=== PATIENT | female | born 1965 | race African-American/Black ===

== ENCOUNTER → 2018-01-14 | Outpatient (CLI) | payer MEDICAID | END | disposition home or self-care (01) | LOC: RADPV 09:33 | PROVIDERS: ATTEND Physician Assistant | DX: K76.0 Fatty (change of) liver, not elsewhere classified (principal) | CPT/HCPCS: 76700 ==

== ENCOUNTER 2019-05-24 21:15 | Inpatient (IN) | payer MEDICAID ==
[~2019-05-24] VITALS: Ht 162.6 cm; Wt 104.3 kg
[2019-05-24] MEDS ORDERED: HALOPERIDOL 5 MG TABLET PO PRN (22:00)
[2019-05-24] MEDS ORDERED: ZOLPIDEM TARTRATE 10 MG TABLET PO PRN (22:00)
[2019-05-24] MEDS ORDERED: LORazepam 2 MG TABLET PO PRN (22:00)
[2019-05-24] MEDS ORDERED: TRAZ-220 PO (22:37)
[2019-05-24] MEDS ORDERED: HALO5TAB2 PO (22:37)
[2019-05-25 07:45] VITALS: BP 161/75
[2019-05-25 08:00] VITALS: BP 161/75
[2019-05-25 08:25] LABS: BASOPHILS % (AUTO) 0.6 % (0.0-2.0); EOSINOPHILS % (AUTO) 6.8 % (1.0-6.0); HEMATOCRIT 40.9 % (36-46); HEMOGLOBIN 13.6 g/dL (12.0-16.0); LYMPHOCYTES % (AUTO) 45.3 % (22.0-44.0); MEAN CORPUSCULAR HEMOGLOBIN 28.9 pg (26.0-34.0); MEAN CORPUSCULAR HGB CONC 33.3 G/dL (31.0-37.0); MEAN CORPUSCULAR VOLUME 87 fL (80-100); MONOCYTES # (AUTO) 0.3 K/uL (0.1-1.0); MONOCYTES % (AUTO) 7.5 % (2.0-9.0); NEUTROPHILS # (AUTO) 1.8 K/uL (1.8-7.7); NEUTROPHILS % (AUTO) 39.8 % (40.0-70.0); PLATELET COUNT (AUTO) 245 K/uL (150-450); RED BLOOD CELL COUNT(AUTO) 4.71 MIL/uL (4.00-5.20); RED CELL DISTRIBUTION WIDTH 13.3 % (11.5-14.5)
[2019-05-25 08:31] LABS: AMPHET/METH SCREEN,URINE NEGATIVE (NEGATIVE); BARBITURATE SCREEN, URINE NEGATIVE (NEGATIVE); BENZODIAZEPINES SCREEN,URINE NEGATIVE (NEGATIVE); CANNABINOID SCREEN,URINE NEGATIVE (NEGATIVE); COCAINE SCREEN,URINE NEGATIVE (NEGATIVE); METHADONE SCREEN, URINE NEGATIVE (NEGATIVE); OPIATE SCREEN,URINE NEGATIVE (NEGATIVE)
[2019-05-25 08:33] LABS: PHENCYCLIDINE SCREEN,URINE NEGATIVE (NEGATIVE)
[2019-05-25 08:37] LABS: HEMOGLOBIN A1C 6.2 % (4.5-6.2)
[2019-05-25 08:48] LABS: ALANINE AMINOTRANSFERASE 27 U/L (12-78); ALBUMIN 3.2 g/dL (3.4-5.0); ALKALINE PHOSPHATASE 57 U/L (46-116); ANION GAP 4 mmol/L (8-16); ASPARTATE AMINOTRANSFERASE 23 U/L (15-37); BILIRUBIN,TOTAL 0.6 mg/dL (0.1-1.0); CALCIUM, TOTAL 9.2 mg/dL (8.8-10.5); CARBON DIOXIDE 29 mmol/L (22-29); CHLORIDE 110 mmol/L (98-107); CHOL/HDL RATIO 5.2 (3.9-5.7); CHOLESTEROL 170 mg/dL (131-200); CREATININE 0.89 mg/dL (0.60-1.30); FREE T4 (FREE THYROXINE) 1.11 ng/dL (0.76-1.46); GLOMERULAR FILTR. RATE CALC > 60 mL/min (>60); GLUCOSE,RANDOM 93 mg/dL (70-110); HDL CHOLESTEROL 33 mg/dL (40-60); LDL CHOL (CALC.) 120 mg/dL (0-130); SODIUM SERUM 143 mmol/L (136-145); THYROID STIMULATING HORMONE 0.62 uIU/mL (0.36-3.74); TOTAL PROTEIN, SERUM 6.3 g/dL (6.4-8.2); TRIGLYCERIDES 84 mg/dL (15-150); UREA NITROGEN, BLOOD 11 mg/dL (7-18)
[2019-05-25] MEDS ORDERED: MAGNESIUM HYDROXIDE SUSPENSION 30 ML UDCUP PO PRN (09:00)
[2019-05-25] MEDS ORDERED: OMEPRAZOLE 20 MG CAPSULE PO SCH (09:00)
[2019-05-25] MEDS ORDERED: BENZOCAINE/MENTHOL LOZENGE MM PRN (09:00)
[2019-05-25] MEDS ORDERED: MAG HYDROX/AL HYDROX/SIMETH ES 30 ML SUSPENSION UDCUP PO PRN (09:00)
[2019-05-25] MEDS ORDERED: DOCUSATE SODIUM 100 MG CAPSULE PO SCH (09:00)
[2019-05-25] MEDS ORDERED: ACETAMINOPHEN 325 MG TABLET PO PRN (09:00)
[2019-05-25] MEDS ORDERED: ONDANSETRON HCL 4 MG TABLET PO PRN (09:00)
[2019-05-25] MEDS ORDERED: CloNIDine HCL 0.1 MG TABLET PO PRN (09:00)
[2019-05-25] MEDS ORDERED: BACITRACIN 28.4 GM OINTMENT TP PRN (09:00)
[2019-05-25] MEDS ORDERED: IBUPROFEN 600 MG TABLET PO PRN (09:00)
[2019-05-25] MEDS ORDERED: LOPERAMIDE HCL 2 MG CAPSULE PO PRN (09:00)
[2019-05-25 09:05] LABS: APPEARANCE,URINE CLEAR (CLEAR); BILIRUBIN,URINE NEGATIVE (NEGATIVE); GLUCOSE, URINE (UA) NEGATIVE (NEGATIVE); KETONES,URINE NEGATIVE (NEGATIVE); LEUKOCYTE ESTERASE ,URINE NEGATIVE (NEGATIVE); NITRATE,URINE NEGATIVE (NEGATIVE); OCCULT BLOOD,URINE TRACE (NEGATIVE); PROTEIN,URINE NEGATIVE (NEGATIVE); UROBILINOGEN,URINE 0.2 mg/dL (<=1.0)
[2019-05-25 09:21] LABS: BACTERIA,URINE None Seen /HPF (None Seen); RBC,URINE 0-2 /HPF (0-2); SQUAMOUS EPITHELIAL CELL,UR Few /LPF (None Seen); WBC,URINE 0-2 /HPF (0-5)
[2019-05-25] MEDS ORDERED: OMEPRAZOLE 20 MG CAPSULE PO PRN (10:00)
[2019-05-25] MEDS ORDERED: DOCUSATE SODIUM 100 MG CAPSULE PO PRN (10:00)
[2019-05-25 16:38] VITALS: BP 129/72
[2019-05-25] MEDS: TRIAMCINOLONE 0.1% 15 GM CREAM TP SCH (16:46)
[2019-05-26] MEDS: TRIAMCINOLONE 0.1% 15 GM CREAM TP SCH (08:04)
[2019-05-26 08:26] VITALS: BP 107/60
[2019-05-26] MEDS: ALBUTEROL SULFATE HFA 90 MCG/PUFF 8 GM INHALER IH PRN (08:32)
[2019-05-26] MEDS: HALOPERIDOL 5 MG TABLET PO SCH (18:15)
[2019-05-26] MEDS: TraZODone HCL 150 MG TABLET PO SCH (20:46)
[2019-05-27 06:38] VITALS: BP 119/73
[2019-05-27] MEDS: ALBUTEROL SULFATE HFA 90 MCG/PUFF 8 GM INHALER IH PRN (06:48)
[2019-05-27 08:40] VITALS: BP 133/61
[2019-05-27] MEDS: HALOPERIDOL 5 MG TABLET PO SCH ×2 (08:49→17:00)
[2019-05-27] MEDS: TRIAMCINOLONE 0.1% 15 GM CREAM TP SCH (08:49)
[2019-05-27] MEDS: PETROLATUM,WHITE 28 GM JELLY TP PRN (10:28)
[2019-05-27 16:40] VITALS: BP 136/69
[2019-05-27] MEDS: TraZODone HCL 150 MG TABLET PO SCH (20:30)
[2019-05-28 08:35] VITALS: BP 128/62
[2019-05-28] MEDS: HALOPERIDOL 5 MG TABLET PO SCH ×2 (09:00→16:17)
[2019-05-28] MEDS: TRIAMCINOLONE 0.1% 15 GM CREAM TP SCH (09:00)
[2019-05-28] MEDS: ALBUTEROL SULFATE HFA 90 MCG/PUFF 8 GM INHALER IH PRN (10:06)
[2019-05-28 16:05] VITALS: BP 113/60
[2019-05-28] MEDS: TraZODone HCL 150 MG TABLET PO SCH (20:08)
[2019-05-29 06:44] VITALS: BP 134/67
[2019-05-29 08:41] VITALS: BP 126/77
[2019-05-29] MEDS: TRIAMCINOLONE 0.1% 15 GM CREAM TP SCH (09:00)
[2019-05-29] MEDS: HALOPERIDOL 5 MG TABLET PO SCH ×2 (09:00→16:16)
[2019-05-29] MEDS: TraZODone HCL 150 MG TABLET PO SCH (20:27)
[2019-05-30 07:23] VITALS: BP 132/68
[2019-05-30] MEDS: HALOPERIDOL 5 MG TABLET PO SCH ×2 (08:19→16:24)
[2019-05-30] MEDS: PETROLATUM,WHITE 28 GM JELLY TP PRN (08:21)
[2019-05-30] MEDS: TRIAMCINOLONE 0.1% 15 GM CREAM TP SCH (08:23)
[2019-05-30 08:38] VITALS: BP 129/68
[2019-05-30 16:22] VITALS: BP 105/62
[2019-05-30] MEDS: TraZODone HCL 150 MG TABLET PO SCH (21:18)
[2019-05-31 03:49] VITALS: BP 115/55
[2019-05-31] MEDS: PETROLATUM,WHITE 28 GM JELLY TP PRN (07:01)
[2019-05-31] MEDS: HALOPERIDOL 5 MG TABLET PO SCH ×2 (08:16→16:33)
[2019-05-31] MEDS: TRIAMCINOLONE 0.1% 15 GM CREAM TP SCH ×2 (08:17→12:01)
[2019-05-31 16:00] VITALS: BP 133/86
[2019-05-31] MEDS: TraZODone HCL 150 MG TABLET PO SCH (20:05)
[2019-06-01 02:15] VITALS: BP 133/45
[2019-06-01 08:14] VITALS: BP 129/66
[2019-06-01] MEDS: HALOPERIDOL 5 MG TABLET PO SCH ×2 (08:47→17:02)
[2019-06-01] MEDS: PETROLATUM,WHITE 28 GM JELLY TP PRN (08:48)
[2019-06-01] MEDS: TRIAMCINOLONE 0.1% 15 GM CREAM TP SCH (08:49)
[2019-06-01 16:36] VITALS: BP 123/71
[2019-06-01] MEDS: TraZODone HCL 150 MG TABLET PO SCH (20:47)
[2019-06-02 06:25] VITALS: BP 122/72
[2019-06-02] MEDS: HALOPERIDOL 5 MG TABLET PO SCH ×2 (08:06→16:11)
[2019-06-02] MEDS: TRIAMCINOLONE 0.1% 15 GM CREAM TP SCH (08:07)
[2019-06-02] MEDS: ALBUTEROL SULFATE HFA 90 MCG/PUFF 8 GM INHALER IH PRN (08:40)
[2019-06-02 08:44] VITALS: BP 111/60
[2019-06-02 16:26] VITALS: BP 120/71
[2019-06-02] MEDS: TraZODone HCL 150 MG TABLET PO SCH (20:07)
[2019-06-03 00:10] VITALS: BP 121/73
[2019-06-03] MEDS: PETROLATUM,WHITE 28 GM JELLY TP PRN (06:32)
[2019-06-03] MEDS: HALOPERIDOL 5 MG TABLET PO SCH ×2 (07:55→16:06)
[2019-06-03 08:15] VITALS: BP 120/66
[2019-06-03] MEDS: TRIAMCINOLONE 0.1% 15 GM CREAM TP SCH (09:47)
[2019-06-03 16:28] VITALS: BP 113/60
[2019-06-03] MEDS: TraZODone HCL 150 MG TABLET PO SCH (20:24)
[2019-06-04 06:04] VITALS: BP 100/72
[2019-06-04] MEDS: HALOPERIDOL 5 MG TABLET PO SCH ×2 (08:28→15:41)
[2019-06-04] MEDS: TRIAMCINOLONE 0.1% 15 GM CREAM TP SCH (08:29)
[2019-06-04] MEDS: ALBUTEROL SULFATE HFA 90 MCG/PUFF 8 GM INHALER IH PRN (15:38)
[2019-06-04 16:09] VITALS: BP 129/64
[2019-06-04] MEDS: TraZODone HCL 150 MG TABLET PO SCH (20:11)
[2019-06-05 05:22] VITALS: BP 121/71
[2019-06-05 08:10] VITALS: BP 124/63
[2019-06-05] MEDS: HALOPERIDOL 5 MG TABLET PO SCH ×3 (09:00→16:39)
[2019-06-05] MEDS: TRIAMCINOLONE 0.1% 15 GM CREAM TP SCH (09:06)
[2019-06-05] MEDS: ALBUTEROL SULFATE HFA 90 MCG/PUFF 8 GM INHALER IH PRN (12:04)
[2019-06-05 16:11] VITALS: BP 120/63
[2019-06-05] MEDS: TraZODone HCL 150 MG TABLET PO SCH (20:18)
[2019-06-06 01:33] VITALS: BP 118/60
[2019-06-06 08:09] VITALS: BP 127/80
[2019-06-06] MEDS: HALOPERIDOL 5 MG TABLET PO SCH (08:13)
[2019-06-06] MEDS: TRIAMCINOLONE 0.1% 15 GM CREAM TP SCH (08:14)
[2019-06-06] MEDS ORDERED: TRAZ150 PO (10:41)
[2019-06-06] MEDS ORDERED: HALO10 PO (10:41)
[2019-06-06] MEDS ORDERED: GABA300C PO (13:40)
[2019-06-06] MEDS ORDERED: HALO5TAB23 PO (13:42)
== END 2019-06-06 14:20 | disposition home or self-care (01) | DRG 750 ==
LOC: B2S 21:55
PROVIDERS: ADMIT Psychiatry & Neurology Child & Adolescent Psychiatry; ATTEND Psychiatry & Neurology Child & Adolescent Psychiatry
DX: F25.0 Schizoaffective disorder, bipolar type (principal); Z59.0 Homelessness; F41.9 Anxiety disorder, unspecified; G47.00 Insomnia, unspecified; R45.87 Impulsiveness; K59.00 Constipation, unspecified; Z91.14 Patient's other noncompliance with medication regimen
CPT/HCPCS: 80307; 83036; 84439; 84443; 87081; J3535

== ENCOUNTER 2019-06-30 09:00 | Inpatient (IN) | payer MEDICAID, OTHER ==
[~2019-06-30] VITALS: Ht 165.1 cm; Wt 102.5 kg
[~2019-06-30 09:00] MED LIST: HALO10 PO; TRAZ150 PO
[2019-06-30] MEDS ORDERED: HALOPERIDOL 5 MG TABLET PO PRN (10:45)
[2019-06-30] MEDS ORDERED: ZOLPIDEM TARTRATE 10 MG TABLET PO PRN (10:45)
[2019-06-30] MEDS ORDERED: LORazepam 2 MG/ML VIAL IM ONE (11:45)
[2019-06-30] MEDS ORDERED: HALOPERIDOL LACTATE 5 MG/ML VIAL IM ONE (11:45)
[2019-06-30] MEDS ORDERED: DiphenhydrAMINE HCL 50 MG/ML VIAL IM ONE (11:45)
[2019-06-30 13:11] LABS: BASOPHILS % (AUTO) 1.2 % (0.0-2.0); EOSINOPHILS % (AUTO) 2.6 % (1.0-6.0); HEMATOCRIT 38.9 % (36-46); HEMOGLOBIN 12.7 g/dL (12.0-16.0); LYMPHOCYTES # (AUTO) 1.9 K/uL (1.0-4.8); LYMPHOCYTES % (AUTO) 35.5 % (22.0-44.0); MEAN CORPUSCULAR HGB CONC 32.7 G/dL (31.0-37.0); MEAN CORPUSCULAR VOLUME 86 fL (80-100); MONOCYTES # (AUTO) 0.5 K/uL (0.1-1.0); MONOCYTES % (AUTO) 8.7 % (2.0-9.0); NEUTROPHILS # (AUTO) 2.9 K/uL (1.8-7.7); PLATELET COUNT (AUTO) 264 K/uL (150-450); RED BLOOD CELL COUNT(AUTO) 4.54 MIL/uL (4.00-5.20); RED CELL DISTRIBUTION WIDTH 13.5 % (11.5-14.5)
[2019-06-30 13:34] LABS: ALANINE AMINOTRANSFERASE 25 U/L (12-78); ALBUMIN 3.4 g/dL (3.4-5.0); ALKALINE PHOSPHATASE 60 U/L (46-116); ANION GAP 8 mmol/L (8-16); ASPARTATE AMINOTRANSFERASE 23 U/L (15-37); BILIRUBIN,TOTAL 0.6 mg/dL (0.1-1.0); CALCIUM, TOTAL 9.6 mg/dL (8.8-10.5); CARBON DIOXIDE 26 mmol/L (22-29); CHLORIDE 111 mmol/L (98-107); CREATININE 1.01 mg/dL (0.60-1.30); GLOMERULAR FILTR. RATE CALC > 60 mL/min (>60); GLUCOSE,RANDOM 93 mg/dL (70-110); SODIUM SERUM 145 mmol/L (136-145); TOTAL PROTEIN, SERUM 6.6 g/dL (6.4-8.2)
[2019-06-30 13:35] LABS: SALICYLATE 1.1 mg/dL (2.8-20.0)
[2019-06-30 13:43] LABS: UREA NITROGEN, BLOOD 13 mg/dL (7-18)
[2019-06-30 13:44] LABS: ACETAMINOPHEN < 2 mcg/mL (10-30)
[2019-06-30] MEDS ORDERED: CloNIDine HCL 0.1 MG TABLET PO PRN (15:15)
[2019-06-30] MEDS ORDERED: IBUPROFEN 400 MG TABLET PO PRN (15:15)
[2019-06-30] MEDS ORDERED: LOPERAMIDE HCL 2 MG CAPSULE PO PRN (15:15)
[2019-06-30] MEDS ORDERED: MAGNESIUM HYDROXIDE SUSPENSION 30 ML UDCUP PO PRN (15:15)
[2019-06-30] MEDS ORDERED: MAG HYDROX/AL HYDROX/SIMETH ES 30 ML SUSPENSION UDCUP PO PRN (15:15)
[2019-06-30] MEDS ORDERED: ONDANSETRON HCL 4 MG TABLET PO PRN (15:15)
[2019-06-30] MEDS ORDERED: GuaiFENesin/D-METHORPHAN [SUGAR-FREE] 200-20MG/10 ML SYRUP UDCUP PO PRN (15:15)
[2019-06-30] MEDS ORDERED: NICOTINE 14 MG/24 HOUR PATCH TD PRN (15:15)
[2019-06-30] MEDS ORDERED: ACETAMINOPHEN 325 MG TABLET PO PRN (15:15)
[2019-06-30] MEDS ORDERED: DOCUSATE SODIUM 100 MG CAPSULE PO PRN (15:15)
[2019-07-01] MEDS: HALOPERIDOL 10 MG TABLET PO SCH ×2 (10:17→20:27)
[2019-07-01 16:11] VITALS: BP 136/76
[2019-07-02 05:05] VITALS: BP 127/70
[2019-07-02] MEDS: HALOPERIDOL 10 MG TABLET PO SCH ×2 (08:05→20:11)
[2019-07-02 09:06] VITALS: BP 132/90
[2019-07-02 16:00] VITALS: BP 130/72
[2019-07-02] MEDS: TRIAMCINOLONE 0.1% 15 GM CREAM TP PRN (16:20)
[2019-07-03 06:21] VITALS: BP 117/77
[2019-07-03 06:26] VITALS: BP 138/79
[2019-07-03 08:27] VITALS: BP 132/81
[2019-07-03] MEDS: HALOPERIDOL 10 MG TABLET PO SCH ×2 (09:07→20:17)
[2019-07-03] MEDS: LORazepam 2 MG TABLET PO PRN (09:46)
[2019-07-03] MEDS: PETROLATUM,WHITE 28 GM JELLY TP PRN (13:31)
[2019-07-03 16:28] VITALS: BP 132/78
[2019-07-04 06:04] VITALS: BP 113/73
[2019-07-04] MEDS: TRIAMCINOLONE 0.1% 15 GM CREAM TP PRN (06:28)
[2019-07-04 08:09] VITALS: BP 104/63
[2019-07-04] MEDS: HALOPERIDOL 10 MG TABLET PO SCH ×2 (08:55→20:52)
[2019-07-04 16:13] VITALS: BP 123/70
[2019-07-04] MEDS: LORazepam 2 MG TABLET PO PRN (16:51)
[2019-07-05 06:35] VITALS: BP 119/77
[2019-07-05] MEDS: HALOPERIDOL 10 MG TABLET PO SCH ×2 (08:22→20:35)
[2019-07-05 08:33] VITALS: BP 117/74
[2019-07-05 16:37] VITALS: BP 134/79
[2019-07-06] MEDS: ALBUTEROL SULFATE HFA 90 MCG/PUFF 8 GM INHALER IH PRN (04:06)
[2019-07-06] MEDS: HALOPERIDOL 10 MG TABLET PO SCH ×2 (08:46→16:24)
[2019-07-06 08:54] VITALS: BP 115/58
[2019-07-06] MEDS: PETROLATUM,WHITE 28 GM JELLY TP PRN (09:01)
[2019-07-06 16:10] VITALS: BP 130/76
[2019-07-06] MEDS: DIVALPROEX SODIUM 500 MG ER TABLET PO SCH (16:23)
[2019-07-06] MEDS: BENZTROPINE MESYLATE 1 MG TABLET PO SCH (16:23)
[2019-07-07 05:55] VITALS: BP 115/63
[2019-07-07] MEDS: DIVALPROEX SODIUM 500 MG ER TABLET PO SCH ×2 (08:34→16:48)
[2019-07-07] MEDS: HALOPERIDOL 10 MG TABLET PO SCH ×2 (08:35→16:48)
[2019-07-07] MEDS: BENZTROPINE MESYLATE 1 MG TABLET PO SCH ×2 (08:41→16:48)
[2019-07-08 01:26] VITALS: BP 102/63
[2019-07-08] MEDS: HALOPERIDOL 10 MG TABLET PO SCH ×2 (08:20→16:26)
[2019-07-08] MEDS: DIVALPROEX SODIUM 500 MG ER TABLET PO SCH ×2 (08:20→16:26)
[2019-07-08] MEDS: BENZTROPINE MESYLATE 1 MG TABLET PO SCH ×2 (08:21→16:26)
[2019-07-08] MEDS: TRIAMCINOLONE 0.1% 15 GM CREAM TP PRN (08:36)
[2019-07-08] MEDS: PETROLATUM,WHITE 28 GM JELLY TP PRN (15:51)
[2019-07-08] MEDS: ALBUTEROL SULFATE HFA 90 MCG/PUFF 8 GM INHALER IH PRN (15:51)
[2019-07-09] VITALS: BP 123/67
[2019-07-09] MEDS: HALOPERIDOL 10 MG TABLET PO SCH ×2 (09:01→16:09)
[2019-07-09] MEDS: DIVALPROEX SODIUM 500 MG ER TABLET PO SCH ×2 (09:01→16:09)
[2019-07-09] MEDS: BENZTROPINE MESYLATE 1 MG TABLET PO SCH ×2 (09:01→16:09)
[2019-07-09] MEDS: TRIAMCINOLONE 0.1% 15 GM CREAM TP PRN (15:54)
[2019-07-09 16:23] VITALS: BP 110/63
[2019-07-09] MEDS: ALBUTEROL SULFATE HFA 90 MCG/PUFF 8 GM INHALER IH PRN (16:55)
[2019-07-09] MEDS: PETROLATUM,WHITE 28 GM JELLY TP PRN (19:43)
[2019-07-10 06:39] VITALS: BP 120/68
[2019-07-10 08:12] VITALS: BP 122/57
[2019-07-10] MEDS: HALOPERIDOL 10 MG TABLET PO SCH ×2 (08:32→16:11)
[2019-07-10] MEDS: DIVALPROEX SODIUM 500 MG ER TABLET PO SCH ×2 (08:32→16:11)
[2019-07-10] MEDS: BENZTROPINE MESYLATE 1 MG TABLET PO SCH ×2 (08:32→16:11)
[2019-07-10 16:09] VITALS: BP 124/85
[2019-07-10] MEDS: ALBUTEROL SULFATE HFA 90 MCG/PUFF 8 GM INHALER IH PRN (16:58)
[2019-07-11 05:49] VITALS: BP 123/72
[2019-07-11 08:21] VITALS: BP 123/64
[2019-07-11] MEDS: HALOPERIDOL 10 MG TABLET PO SCH ×2 (08:52→16:22)
[2019-07-11] MEDS: DIVALPROEX SODIUM 500 MG ER TABLET PO SCH ×2 (08:52→16:22)
[2019-07-11] MEDS: BENZTROPINE MESYLATE 1 MG TABLET PO SCH ×2 (08:52→16:22)
[2019-07-11] MEDS: PETROLATUM,WHITE 28 GM JELLY TP PRN (09:19)
[2019-07-11] MEDS: ALBUTEROL SULFATE HFA 90 MCG/PUFF 8 GM INHALER IH PRN (11:11)
[2019-07-11 16:11] VITALS: BP 132/68
[2019-07-12 05:32] VITALS: BP 126/71
[2019-07-12 08:08] VITALS: BP 111/55
[2019-07-12] MEDS: DIVALPROEX SODIUM 500 MG ER TABLET PO SCH ×2 (09:01→16:12)
[2019-07-12] MEDS: HALOPERIDOL 10 MG TABLET PO SCH ×2 (09:01→16:12)
[2019-07-12] MEDS: BENZTROPINE MESYLATE 1 MG TABLET PO SCH ×2 (09:01→16:12)
[2019-07-12] MEDS: TRIAMCINOLONE 0.1% 15 GM CREAM TP PRN (09:22)
[2019-07-12 16:07] VITALS: BP 139/63
[2019-07-13 06:55] VITALS: BP 116/67
[2019-07-13 08:38] VITALS: BP 119/72
[2019-07-13] MEDS: HALOPERIDOL 10 MG TABLET PO SCH ×2 (09:05→16:38)
[2019-07-13] MEDS: DIVALPROEX SODIUM 500 MG ER TABLET PO SCH ×2 (09:05→16:38)
[2019-07-13] MEDS: BENZTROPINE MESYLATE 1 MG TABLET PO SCH ×2 (09:05→16:38)
[2019-07-13] MEDS: ALBUTEROL SULFATE HFA 90 MCG/PUFF 8 GM INHALER IH PRN ×3 (10:09→22:54)
[2019-07-13 16:15] VITALS: BP 121/76
[2019-07-14] MEDS: TRIAMCINOLONE 0.1% 15 GM CREAM TP PRN (05:32)
[2019-07-14] MEDS: PETROLATUM,WHITE 28 GM JELLY TP PRN ×2 (05:34→15:10)
[2019-07-14 05:44] VITALS: BP 111/65
[2019-07-14] MEDS: ALBUTEROL SULFATE HFA 90 MCG/PUFF 8 GM INHALER IH PRN ×2 (06:13→13:10)
[2019-07-14 08:10] VITALS: BP 110/60
[2019-07-14] MEDS: BENZTROPINE MESYLATE 1 MG TABLET PO SCH ×2 (08:17→15:49)
[2019-07-14] MEDS: HALOPERIDOL 10 MG TABLET PO SCH ×2 (08:17→15:49)
[2019-07-14] MEDS: DIVALPROEX SODIUM 500 MG ER TABLET PO SCH ×2 (08:17→15:49)
[2019-07-14 16:14] VITALS: BP 136/67
[2019-07-15 01:47] VITALS: BP 116/64
[2019-07-15] MEDS: HALOPERIDOL 10 MG TABLET PO SCH ×2 (08:05→16:31)
[2019-07-15] MEDS: BENZTROPINE MESYLATE 1 MG TABLET PO SCH ×2 (08:05→16:31)
[2019-07-15] MEDS: DIVALPROEX SODIUM 500 MG ER TABLET PO SCH ×2 (08:05→16:31)
[2019-07-15] MEDS: ALBUTEROL SULFATE HFA 90 MCG/PUFF 8 GM INHALER IH PRN (08:08)
[2019-07-15 08:23] VITALS: BP 124/61
[2019-07-15 16:18] VITALS: BP 131/76
[2019-07-16 04:26] VITALS: BP 126/69
[2019-07-16] MEDS: HALOPERIDOL 10 MG TABLET PO SCH ×2 (08:01→16:06)
[2019-07-16] MEDS: DIVALPROEX SODIUM 500 MG ER TABLET PO SCH ×2 (08:01→16:06)
[2019-07-16] MEDS: BENZTROPINE MESYLATE 1 MG TABLET PO SCH ×2 (08:01→16:06)
[2019-07-16 09:06] VITALS: BP 102/49
[2019-07-16] MEDS: ALBUTEROL SULFATE HFA 90 MCG/PUFF 8 GM INHALER IH PRN ×2 (09:43→14:28)
[2019-07-16] MEDS: TRIAMCINOLONE 0.1% 15 GM CREAM TP PRN (09:45)
[2019-07-16 16:09] VITALS: BP 116/68
[2019-07-17 05:59] VITALS: BP 115/70
[2019-07-17 08:21] VITALS: BP 127/72
[2019-07-17] MEDS: BENZTROPINE MESYLATE 1 MG TABLET PO SCH ×2 (08:22→16:45)
[2019-07-17] MEDS: DIVALPROEX SODIUM 500 MG ER TABLET PO SCH ×2 (08:22→16:45)
[2019-07-17] MEDS: HALOPERIDOL 10 MG TABLET PO SCH ×2 (08:23→16:45)
[2019-07-17] MEDS: ALBUTEROL SULFATE HFA 90 MCG/PUFF 8 GM INHALER IH PRN ×2 (08:23→14:31)
[2019-07-17 16:47] VITALS: BP 130/62
[2019-07-17] MEDS ORDERED: DIVA500T52 PO (19:20)
[2019-07-17] MEDS ORDERED: HALO10 PO (19:20)
[2019-07-17] MEDS ORDERED: BENZ1TAB10 PO (19:20)
== END 2019-07-18 02:25 | disposition home or self-care (01) | DRG 750 ==
LOC: EMS 09:00 → B3A 13:44 → UNDODISIN 07-17 13:30 → TMPLOALOC 07-17 13:30 → B3A 07-17 16:38
PROVIDERS: ATTEND Psychiatry & Neurology Child & Adolescent Psychiatry
DX: F20.0 Paranoid schizophrenia (principal); F10.10 Alcohol abuse, uncomplicated; F19.10 Other psychoactive substance abuse, uncomplicated; K59.00 Constipation, unspecified; Z71.41 Alcohol abuse counseling and surveillance of alcoholic; Z71.51 Drug abuse counseling and surveillance of drug abuser; Z88.6 Allergy status to analgesic agent; Z79.899 Other long term (current) drug therapy
CPT/HCPCS: 87081; 96372; 99291; G0480; G0481; J1200; J1630; J2060; J3535